=== PATIENT | female | born 1995 | race Two or more races ===

== ENCOUNTER 2019-11-30 15:47 | Emergency (ER) | payer SELFPAY ==
[~2019-11-30] VITALS: Ht 167.6 cm; Wt 91.0 kg
[2019-11-30] MEDS ORDERED: HALOPERIDOL LACTATE 5MG/ML VIAL IM STA (18:26)
[2019-11-30] MEDS ORDERED: LORAZEPAM 2MG/ML CPJ IM STA (18:26)
[2019-11-30] MEDS ORDERED: LORAZEPAM 2MG/ML CPJ ONE (18:29)
[2019-11-30] MEDS ORDERED: HALOPERIDOL LACTATE 5MG/ML VIAL IM ONE (18:30)
[2019-11-30] MEDS ORDERED: DIPHENHYDRAMINE 50MG/ML VIAL IM ONE (19:00)
[2019-11-30] MEDS ORDERED: SODIUM CHLORIDE 0.9% 1,000 ML IV ONE (19:57)
[2019-11-30 20:30] LABS: CLARITY URINE CLEAR (CLEAR); COLOR URINE YELLOW (YELLOW); KETONES URINE 1+ (NEGATIVE); LEUKOCYTE ESTERASE URINE NEGATIVE (NEGATIVE); NITRITE URINE NEGATIVE (NEGATIVE); OCCULT BLOOD URINE NEGATIVE (NEGATIVE); PROTEIN URINE TRACE (NEGATIVE); SPECIFIC GRAVITY URINE 1.035 (1.005-1.030)
[2019-11-30 20:42] LABS: BASOPHILS % 0.8 % (0.0-2.0); HEMATOCRIT. 38.2 % (36.0-48.0); HEMOGLOBIN. 12.7 g/dL (12.0-16.0); LYMPHOCYTES % 28.1 % (20.0-50.0); MEAN CORPUSCULAR HEMOGLOBIN 28.6 pg (28.0-32.0); MEAN CORPUSCULAR VOLUME 86.3 fL (81.0-99.0); MEAN PLATELET VOLUME 8.7 fl (7.4-10.4); MONOCYTES % 8.5 % (2.0-8.0); NEUTROPHILS % 60.6 % (40.0-76.0); PLATELET 275 x1000/uL (130-400); RED BLOOD CELL COUNT 4.43 mill/uL (4.2-5.4)
[2019-11-30 20:49] LABS: CHLORIDE 109 mEq/L (98-107)
[2019-11-30 20:53] LABS: ETHANOL BLOOD < 10 mg/dL
[2019-11-30 20:58] LABS: CREATINE KINASE 259 IU/L (26-192)
[2019-11-30 21:10] LABS: *BARBITURATES SCREEN URINE NEGATIVE (NEGATIVE)
[2019-11-30 21:11] LABS: *AMPHETAMINES SCREEN URINE PRESUMTIVE POSITIVE (NEGATIVE); *BENZODIAZEPINES SCREEN URINE NEGATIVE (NEGATIVE); *COCAINE SCREEN URINE NEGATIVE (NEGATIVE); CANNABINOID URINE SCREEN PRESUMTIVE POSITIVE (NEGATIVE); METHADONE URINE SCREEN NEGATIVE (NEGATIVE); OPIATES URINE SCREEN NEGATIVE (NEGATIVE); PHENCYCLIDINE URINE SCREEN PRESUMTIVE POSITIVE (NEGATIVE)
[2019-12-01 06:45] VITALS: BP 133/71
== END 2019-12-01 06:52 | disposition home or self-care (01) ==
LOC: ER 15:47
DX: T43.621A Poisoning by amphetamines, accidental (unintentional), initial encounter (principal); T40.991A Poisoning by other psychodysleptics [hallucinogens], accidental (unintentional), initial encounter; R45.1 Restlessness and agitation; F23 Brief psychotic disorder; F17.200 Nicotine dependence, unspecified, uncomplicated; F12.10 Cannabis abuse, uncomplicated; F15.10 Other stimulant abuse, uncomplicated; F16.10 Hallucinogen abuse, uncomplicated; F20.9 Schizophrenia, unspecified; F41.9 Anxiety disorder, unspecified; R45.850 Homicidal ideations; Y92.89 Other specified places as the place of occurrence of the external cause
CPT/HCPCS: 36415; 71045; 80053; 80305; 80307; 80320; 80329; 81003; 81025; 82140; 82550; 84443; 85025; 96360; 96361; 96372; 99285; J1200; J1630; J2060; J7030; G0480